=== PATIENT | male | born 1970 | race Caucasian/White ===

== ENCOUNTER 2021-04-02 14:39 | Emergency (ER) | payer MEDICAID ==
[~2021-04-02] VITALS: Ht 175.3 cm; Wt 86.0 kg
[2021-04-02] MEDS ORDERED: AMOXICILLIN/POTASSIUM CLAVULANATE 875/125MG TAB PO ONE (16:45)
[2021-04-02] MEDS ORDERED: TETANUS, DIPHTHERIA, PERTUSSIS VAC/PF 0.5ML (>7YR OLD) IM ONE (16:45)
[2021-04-02] MEDS ORDERED: LIDOCAINE HCL/PF 1% 10 MG/ML 5ML VIAL INFIL ONE (16:45)
[2021-04-02] MEDS ORDERED: BACITRACIN ZINC OINT UDPKT TOP ONE (16:45)
[2021-04-02] MEDS ORDERED: IBUPROFEN 600MG TABLET PO ONE (16:45)
[2021-04-02] MEDS ORDERED: AMOX-424 MT (17:52)
[2021-04-02] MEDS ORDERED: IBUP-2029 MT (17:52)
[2021-04-02] MEDS ORDERED: BO1 TP (17:52)
[2021-04-02 18:17] VITALS: BP 112/70
== END 2021-04-02 18:17 | disposition home or self-care (01) ==
LOC: ER 16:25
DX: S01.111A Laceration without foreign body of right eyelid and periocular area, initial encounter (principal); Y04.0XXA Assault by unarmed brawl or fight, initial encounter; Y93.89 Activity, other specified; Y92.89 Other specified places as the place of occurrence of the external cause; Y99.8 Other external cause status; Z79.899 Other long term (current) drug therapy
CPT/HCPCS: 12011; 90471; 90715; 99284; A4217; J3490; Z7610